=== PATIENT | female | born 1960 | race Caucasian/White ===

== ENCOUNTER 2018-02-10 15:31 | Emergency (ER) | payer OTHER ==
[~2018-02-10] VITALS: Ht 165.1 cm; Wt 74.8 kg
[2018-02-10] MEDS ORDERED: LISINOPRIL2.5 MG (15:39)
== END 2018-02-10 19:36 | disposition home or self-care (01) ==
LOC: ER 15:31
DX: J45.998 Other asthma (principal); R55 Syncope and collapse; R05 Cough